=== PATIENT | female | born 1935 | race African-American/Black ===

== ENCOUNTER 2021-07-02 09:00 | Emergency (ER) | payer OTHER ==
[~2021-07-02] VITALS: Ht 165.1 cm; Wt 71.7 kg
[2021-07-02 10:13] LABS: ABSOLUTE NEUTROPHILS 3.2 thou/uL (1.4-8.2); BASOPHILS 0.9 % (0.0-2.0); EOSINOPHILS 17.5 % (0.0-3.0); HEMATOCRIT 37.6 % (37.0-47.0); HEMOGLOBIN 12.4 gm/dL (12.0-15.0); LYMPHOCYTES 23.2 % (24.0-44.0); MCH 31.1 pg (26.0-34.0); MCHC 33.1 g/dL (28.0-37.0); MONOCYTES 6.6 % (1.0-8.0); PLATELET COUNT 254 thou/uL (150-400); POLYS 51.8 % (36.0-66.0); RDW 14.4 % (10.5-14.5); WBC 6.1 thou/uL (4.0-11.0)
[2021-07-02 10:19] LABS: CALCIUM 9.3 mg/dL (8.5-10.1); CREATININE 1.1 mg/dL (0.6-1.0); POTASSIUM 3.9 mmol/L (3.5-5.1)
[2021-07-02 10:29] LABS: ALBUMIN 3.4 g/dL (3.4-5.0); TOTAL BILIRUBIN 0.4 mg/dL (0.2-1.0); TOTAL PROTEIN 8.6 g/dL (6.4-8.2)
[2021-07-02 10:33] LABS: APTT 22.8 Seconds (24.5-32.8); INR 1.08; PROTIME 11.7 Seconds (10.5-12.1)
[2021-07-02] MEDS ORDERED: PREDNISONE 20 M20 MG PO (11:14)
[2021-07-02] MEDS ORDERED: AZITHROMYCIN 2250 MG PO (11:14)
[2021-07-02] MEDS ORDERED: PROAIR HFA8.5 GM INH (11:15)
[2021-07-02] MEDS ORDERED: SPACERADULT INH (11:15)
[2021-07-02 12:16] VITALS: BP 133/80
--- NOTE | 2021-07-04 07:37 | EKG ---
[address] [address] ELECTROCARDIOGRAM REPORT Name: CLARA HU [facility] [id number] Admission: 07/02/21 Attend Phys: Discharge: 07/02/21 Date of : 39 Report #: [id number] [facility] ED Test Date: 2021-07-02 Test Time: 10:12:26 Pat Name: CLARA HU Department: Room: Gender: F Media Relations Director: JCHAIYOLANDA : 1935 Requested By: Hieu Tapia Order Number: [id number] MD: Scottie Alvarado Measurements Intervals [place] Rate: 82 P: 8 RI: 161 QRS: -21 QRSD: 87 T: 33 QT: 370 QTc: 432 Interpretive Statements Sinus rhythm Consider left ventricular hypertrophy No previous ECG available for comparison Electronically Signed On 07-04-2021 7:37:11 CDT by Scottie Alvarado [email or web address] <ELECTRONICALLY SIGNED> By: Scottie Alvarado MD, [facility] 07/04/21 0737 [id number] [id number] Scottie Alvarado MD, FACC /EPI
== END 2021-07-02 12:44 | disposition home or self-care (01) ==
LOC: ER 09:00
PROVIDERS: Emergency Medicine
DX: J18.9 Pneumonia, unspecified organism (principal); Z20.822 Contact with and (suspected) exposure to COVID-19; J98.01 Acute bronchospasm; R06.00 Dyspnea, unspecified